=== PATIENT | male | born 1965 | race Caucasian/White ===

== ENCOUNTER → 2017-06-09 | Outpatient (CLI) | payer OTHER ==
[~2017-06-09] MED LIST: CRESTOR5 MG PO; MOTRIN800 MG PO; PERCOCET 5/31 TABLET PO
== END | disposition home or self-care (01) ==
LOC: NUC 10:32
DX: Z01.818 Encounter for other preprocedural examination (principal)
CPT/HCPCS: 78707; A9562

== ENCOUNTER → 2017-06-23 | Outpatient (CLI) | payer OTHER | END | disposition home or self-care (01) | LOC: EKG 10:50 | DX: Z01.818 Encounter for other preprocedural examination (principal) | CPT/HCPCS: 93005; 93306 ==